=== PATIENT | female | born 1960 | race Caucasian/White ===

== ENCOUNTER 2016-08-28 16:26 | Emergency (ER) | payer BC ==
[2016-08-28 18:07] VITALS: BP 146/77
--- NOTE | 2016-08-28 18:25 | UC ---
Back Pain HPI - HPI Summary HPI Summary: complaint of lower back pain that started approx 4 days ago has progressively gotten worse pain i right sacral pain constant aching non radiating pain leaning backwards increases the pain leaning forward eases the pain denies trauma but has been doing long distance driving recently taking aleve for pain with minimal relief denies fever, unintentional weight loss,incontinence - History of Current Complaint Chief Complaint: UCBackPain Stated Complaint: BACK PAIN Time Seen by Provider: 08/28/16 18:18 Hx Obtained From: Patient Hx Last Menstrual Period: OCTOBER 2014 - Allergies/Home Medications Allergies/Adverse Reactions: Allergies Allergy/AdvReac Type Severity Reaction Status Date / Time Ampicillin Allergy Intermediate Swelling Verified 08/28/16 17:52 Of Face,Lips,& Throat Nitrofurantoin Allergy Intermediate Joint Pain Verified 08/28/16 17:52 Sulfa Antibiotics Allergy Intermediate Swelling Verified 08/28/16 17:52 Of Face,Lips,& Throat PMH/Surg Hx/FS Hx/Imm Hx Previously Healthy: Yes Endocrine History Of: Denies: Diabetes, Thyroid Disease Cardiovascular History Of: Reports: Hypertension Denies: Cardiac Disorders Respiratory History Of: Reports: Asthma Denies: COPD GI/ History Of: Denies: Ulcer Cancer History Of: Denies: Breast Cancer - Surgical History Surgical History: Yes Surgery Procedure, Year, and Place: cholecystectomy - 1979. lymph node removal from left axilla - Family History Known Family History: Negative: Cardiac Disease, Hypertension, Diabetes - Social History Occupation: Employed Full-time Lives: With Family Alcohol Use: None Substance Use Type: None Smoking Status (MU): Never Smoked Tobacco Review of Systems Constitutional: Negative Skin: Negative Eyes: Negative ENT: Negative Respiratory: Negative Cardiovascular: Negative Gastrointestinal: Negative Genitourinary: Negative Motor: Negative Neurovascular: Negative Musculoskeletal: Other: - lower ronen pain Neurological: Negative Psychological: Negative All Other Systems Reviewed And Are Negative: Yes Physical Exam Triage Information Reviewed: Yes Appearance: No Pain Distress, Well-Nourished Vital Signs: Initial Vital Signs Temp 99.1 F 08/28/16 17:55 Pulse 90 08/28/16 17:55 Resp 18 08/28/16 17:55 BP 146/77 08/28/16 17:55 Pulse Ox 100 08/28/16 17:55 Vital Signs Reviewed: Yes Eyes: Positive: Conjunctiva Clear ENT: Positive: Pharynx normal, TMs normal Neck: Positive: Supple Respiratory: Positive: Lungs clear, Normal breath sounds, No respiratory distress Cardiovascular: Positive: RRR, No Murmur, Pulses Normal Abdomen Description: Positive: Nontender, Soft Bowel Sounds: Positive: Present Musculoskeletal: Positive: Other: - Spine have no noted deformities or signs of inflammation. Curvature of thoracic, and lumbar spine are within normal limits. Bony features of shoulders and hips are of equal height bilaterally. Posture is upright, and gait is smooth and normal. Spinous processes of T1-L5 palpable, midline, and non-tender; No step-offs. right sided sacral tenderness . Flexion, extension, and rotation of the remaining spinal column is not within normal limits. Lateral bending causes no discomfort when bending to the right and left side. Neurological: Positive: Alert, Other: - patellar reflexes intact, refuses SLR Psychological Exam: Normal Skin Exam: Normal Back Pain Course/Dx - Differential Dx/Diagnosis Differential Diagnosis/HQI/PQRI: Herniated Disc, Strain, Sprain Provider Diagnoses: lower back pain Discharge - Discharge Plan Condition: Stable Disposition: HOME Prescriptions: Cyclobenzaprine TAB* [Flexeril 10 MG TAB*] 10 mg PO TID PRN #30 tab PRN Reason: Spasms - Muscle Patient Education Materials: Low Back Strain (ED) Referrals: Padmini Galicia MD [Primary Care Provider] - Additional Instructions: Start flexeril as directed. Do not drink alcohol or drive while taking flexeril. Please call physical therapy for further evaluation and treatment. Take ibuprofen for fever or pain. Increase fluids and rest. Please review your discharge instructions. If your symptoms do not improve please call your primary care provider or return to urgent care. Your blood pressure is elevated. Please contact your primary care provider within 1 day -4 weeks for further evaluation.
== END 2016-08-28 19:03 | disposition home or self-care (01) ==
LOC: UCEAST 16:26
DX: M54.5 Low back pain (principal); I10 Essential (primary) hypertension; J45.909 Unspecified asthma, uncomplicated; Z90.49 Acquired absence of other specified parts of digestive tract; Z88.1 Allergy status to other antibiotic agents; Z88.2 Allergy status to sulfonamides
CPT/HCPCS: 99212; G0463

== ENCOUNTER 2017-08-16 07:44 | Emergency (ER) | payer BC ==
[2017-08-16 07:58] VITALS: BP 145/86
--- NOTE | 2017-08-16 08:40 | UC ---
Respiratory Complaint HPI - HPI Summary HPI Summary: Patient presents with about 5 days of intermittent low-grade fever, cough, overall malaise. She feels short of breath and like her "lungs are burning". She denies nausea or chest pain. Has used her inhaler with no effect. - History of Current Complaint Chief Complaint: UCGeneralIllness Stated Complaint: LUNG PAIN,NECK SWELLING Time Seen by Provider: 08/16/17 08:09 Hx Obtained From: Patient Hx Last Menstrual Period: OCTOBER 2014 Onset/Duration: Gradual Onset, Lasting Days, Still Present Severity Initially: Moderate Severity Currently: Moderate Pain Intensity: 0 Pain Scale Used: 0-10 Numeric Character: Cough: Nonproductive Aggravating Factors: Deep Breaths Alleviating Factors: Nothing Associated Signs And Symptoms: Positive: Dyspnea, Fever, Chills. Negative: Pleuritic Chest Pain, Wheezing - Allergies/Home Medications Allergies/Adverse Reactions: Allergies Allergy/AdvReac Type Severity Reaction Status Date / Time ampicillin Allergy Swelling Verified 08/16/17 08:00 Of Face,Lips,& Throat nitrofurantoin Allergy Joint Pain Verified 08/16/17 08:00 Sulfa (Sulfonamide Allergy Swelling Verified 08/16/17 08:00 Antibiotics) Of Face,Lips,& Throat Home Medications: Home Medications Fluticasone/Vilanterol [Breo Ellipta 200-25 Mcg INH] 1 puff PO DAILY 08/16/17 [ History Confirmed 08/16/17] PMH/Surg Hx/FS Hx/Imm Hx Cardiovascular History: Hypertension Respiratory History: Asthma - Surgical History Surgical History: Yes Surgery Procedure, Year, and Place: cholecystectomy - 1979. lymph node removal from left axilla - Family History Known Family History: Negative: Cardiac Disease, Hypertension, Diabetes - Social History Alcohol Use: None Substance Use Type: None Smoking Status (MU): Never Smoked Tobacco Review of Systems Constitutional: Fever, Fatigue Respiratory: Shortness Of Breath, Cough Cardiovascular: Negative Gastrointestinal: Negative Musculoskeletal: Myalgia All Other Systems Reviewed And Are Negative: Yes Physical Exam Triage Information Reviewed: Yes Appearance: Well-Appearing, No Pain Distress, Well-Nourished Vital Signs: Initial Vital Signs Temp 98.1 F 08/16/17 07:53 Pulse 104 08/16/17 07:53 Resp 18 08/16/17 07:53 BP 145/86 08/16/17 07:53 Pulse Ox 97 08/16/17 07:53 Vital Signs Reviewed: Yes Eyes: Positive: Conjunctiva Clear ENT: Positive: Hearing grossly normal, Pharynx normal, TMs normal Neck: Positive: Supple, Nontender, No Lymphadenopathy Respiratory Exam: Normal Cardiovascular: Positive: Tachycardia Abdomen Description: Positive: Soft Musculoskeletal: Positive: No Edema Neurological: Positive: Alert Psychological: Positive: Age Appropriate Behavior Skin: Negative: rashes UC Diagnostic Evaluation - Laboratory O2 Sat by Pulse Oximetry: 97 Diagnostic Studies Comment: INFLUENZA B POSITIVE - Radiology Xray Interpretation: No Acute Changes - CXR Radiology Interpretation Completed By: Radiologist Respiratory Course/Dx - Differential Dx/Diagnosis Provider Diagnoses: INFLUENZA B Discharge - Sign-Out/Discharge Documenting (check all that apply): Discharge - Discharge Plan Condition: Stable Disposition: HOME Patient Education Materials: Influenza (ED) Referrals: Padmini Galicia MD [Primary Care Provider] - If Needed Additional Instructions: CHEST XRAY UNREMARKABLE. SWAB POSITIVE FOR INFLUENZA B. IT IS TOO LATE IN THE COURSE FOR TAMIFLU. OTC MEDS NEEDED FOR FEVER, BODY ACHES. STAY WELL HYDRATED AND RESTED. SEEK FOLLOW-UP IF YOU ARE NOT IMPROVING EXPECTED. YOU MAY CALL ME HERE NEXT SATURDAY 7A-2:30P OR SATURDAY 2:30P-10P IF YOU HAVE ANY QUESTIONS OR CONCERNS. - Billing Disposition and Condition Condition: STABLE Disposition: HOME
--- NOTE | 2017-08-16 09:17 | RAD ---
HISTORY: Cough, fever COMPARISONS: January 04, 2014 VIEWS: 4: Frontal dual-energy and lateral views of the chest. FINDINGS: CARDIOMEDIASTINAL SILHOUETTE: The cardiomediastinal silhouette is normal. TYLOR: The tylor are normal. PLEURA: The costophrenic angles are sharp. No pleural abnormalities are noted. LUNG PARENCHYMA: The lungs are clear. ABDOMEN: The upper abdomen is clear. There is no subphrenic gas. BONES AND SOFT TISSUES: No bone or soft tissue abnormalities are noted. OTHER: None. IMPRESSION: NO ACTIVE CARDIOPULMONARY DISEASE.
== END 2017-08-16 09:29 | disposition home or self-care (01) ==
LOC: UCEAST 07:44
DX: J10.1 Influenza due to other identified influenza virus with other respiratory manifestations (principal); Z88.1 Allergy status to other antibiotic agents; Z88.2 Allergy status to sulfonamides; I10 Essential (primary) hypertension; J45.909 Unspecified asthma, uncomplicated
CPT/HCPCS: 71046; 87502; 99211; G0463